=== PATIENT | male | born 1965 | race Caucasian/White ===

== ENCOUNTER → 2020-12-07 | Outpatient (CLI) | payer OTHER ==
[~2020-12-07] MED LIST: Aspir 8181 MG PO; COENZYME Q-10; FISH1000 PO; GABA600 PO; Lovastatin20 MG PO; MAGNESIUM; STELARA; VITAMIN B12
== END | disposition home or self-care (01) ==
LOC: LAB SHORT 08:09
DX: L82.1 Other seborrheic keratosis (principal)
CPT/HCPCS: 88305

== ENCOUNTER → 2024-12-15 | Outpatient (CLI) | payer OTHER ==
[~2024-12-15] MED LIST changes: +ASPIR 8181 M1 PO; +ATOR40TA PO; +GABA300 PO; +Isosorbide Mono30 MG PO; +MAGNESIUM OXID500 MG PO; +METO25ER PO; +NITR.4SL SL
[2024-12-15 23:24] LABS: Prostate Specific Antigen 0.292 ng/mL (0.000-4.000)
[2024-12-21 00:30] LABS: TESTOSTERONE, FREE BY DIALYSIS 46.3 pg/mL (47.0-244.0); TESTOSTERONE, TOTAL MASS SPEC 231.4 ng/dL (300.0-720.0)
== END ==
LOC: LAB SHORT 08:36 → LAB 08:36
PROVIDERS: Nurse Practitioner Family
DX: E29.1 Testicular hypofunction (principal); Z12.5 Encounter for screening for malignant neoplasm of prostate
CPT/HCPCS: 84402; 84403; G0103